=== PATIENT | male | born 1990 | race Caucasian/White ===

== ENCOUNTER 2016-10-31 09:01 | Emergency (ER) ==
[2016-10-31 09:12] VITALS: BP 112/77; TEMP 98.5; BMI 23.7
[2016-10-31] MEDS ORDERED: TETRACAINE 0.5% UNIT-DOSE OP ONE (09:18)
[2016-10-31] MEDS ORDERED: FLUORETS OP ONE (09:18)
[2016-10-31] MEDS ORDERED: EYE-STREAM OP ONE (09:18)
[2016-10-31] MEDS ORDERED: EYE-STREAM OP STA (09:26)
[2016-10-31] MEDS ORDERED: FLUORETS OP STA (09:27)
--- NOTE | 2016-10-31 09:30 | ED.PDOC ---
General ED Provider: Dr. RUY MEZA Chief Complaint: Eye Problem Stated Complaint: left eye pain Time Seen by Physician: 09:05 (dog sctrached left eye seen with tres at all times ) Mode of Arrival: Walk-In Information Source: Patient Exam Limitations: No limitations Nursing and Triage Documentation Reviewed and Agree: Yes (no metal on metal activity) EENT Complaint Exam - Eye Complaint/Exam Onset/Duration: 1 day Symptoms Are: Still present Timing: Constant Initial Severity: Moderate Current Severity: Moderate Location: Left Character: Reports: Throbbing, Foreign body sensation Aggravating: Reports: Light Alleviating: Reports: Darkness Associated Signs and Symptoms: Reports: Photophobia. Denies: Clear drainage, Purulent drainage, Vision impairment, Fever, Swelling Eye Surgical History: Reports: None Penetrating Injury Risk Factors: None Globe Rupture Risk Factors: None Acute Glaucoma Risk Factors: None Optic Artery Occlusion Risk Factors: None Visual Acuity Right Eye: 20/15 Visual Field: Normal Extraocular Movement: Normal Orbit Findings: Normal Globe Findings: Intact Lid Findings: Normal Conjunctival Findings: Red (left) Corneal Findings: Clear Fluorescein Uptake: Yes (3 oclock only) Differential Diagnoses: Corneal Abrasion Review of Systems - Review Of Systems Constitutional: Reports: No symptoms Eyes: Reports: No symptoms Ears, Nose, Mouth, Throat: Reports: Ear pain Respiratory: Reports: No symptoms Cardiac: Reports: No symptoms GI: Reports: No symptoms : Reports: No symptoms Musculoskeletal: Reports: No symptoms Skin: Reports: No symptoms Neurological: Reports: No symptoms Endocrine: Reports: No symptoms Hematologic/Lymphatic: Reports: No symptoms All Other Systems: Reviewed and Negative Past Medical History - Past Medical History Previously Healthy: Yes Endocrine: Reports: None Cardiovascular: Reports: None Respiratory: Reports: None Hematological: Reports: None Gastrointestinal: Reports: None Genitourinary: Reports: None Neuro/Psych: Reports: None Musculoskeletal: Reports: None Cancer: Reports: None - Surgical History General Surgical History: Reports: None - Family History Family History: Reports: Unknown - Social History Smoking Status: Current every day smoker Hx Substance Use: No Alcohol Screening: Occasionally Physical Exam - Physical Exam Appearance: Well-appearing, No pain distress, Well-nourished Eyes: Conjunctiva inflammed (left postive corneal abrasion no f/b ) ENT: Ears normal, Nose normal, Oropharynx normal Respiratory: Airway patent, Breath sounds clear, Breath sounds equal, Respirations nonlabored Cardiovascular: RRR, Pulses normal, No rub, No murmur GI/: Soft, Nontender, No masses, Bowel sounds normal, No Organomegaly Musculoskeletal: Normal strength, ROM intact, No edema, No calf tenderness Skin: Warm, Dry, Normal color Neurological: Sensation intact, Motor intact, Reflexes intact, Cranial nerves intact, Alert, Oriented Psychiatric: Affect appropriate, Mood appropriate Critical Care Note - Critical Care Note Total Time (mins): 0 Course - Course Orders, Labs, Meds: Orders Category Date Time Status Balanced Salt Solution [Eye-Stream] MEDS 10/31/16 09:18 Discontinued 1 bottle OP .STK-MED ONE Balanced Salt Solution [Eye-Stream] MEDS 10/31/16 09:26 Stat 1 bottle OP ONCE STA Fluorescein Sodium [Fluorets] MEDS 10/31/16 09:18 Discontinued 1 strip OP .STK-MED ONE Fluorescein Sodium [Fluorets] MEDS 10/31/16 09:27 Stat 1 strip OP ONCE STA Tetracaine HCl/Pf [Tetracaine 0.5% Unit-Dose] MEDS 10/31/16 09:18 Discontinued 1 drop OP .STK-MED ONE Medications Discontinued Medications Generic Name Dose Route Start Last Admin Trade Name Freq PRN Reason Stop Dose Admin Eye Irrigation Solution 1 bottle 10/31/16 09:26 Eye-Stream OP 10/31/16 09:27 ONCE STA Fluorescein Sodium 1 strip 10/31/16 09:27 Fluorets OP 10/31/16 09:28 ONCE STA Vital Signs: Temp Pulse Resp BP Pulse Ox 10/31/16 09:08 98.5 F 81 20 112/77 98 Departure - Departure Time of Disposition: 09:31 Disposition: HOME SELF-CARE Discharge Problem: Corneal abrasion Qualifiers: Encounter type: initial encounter Laterality: left Qualifier Code: (S05.02XA) Injury of conjunctiva and corneal abrasion without foreign body, left eye, initial encounter Instructions: Corneal Abrasion (ED) Condition: Good Pt referred to PMD for follow-up: No Additional Instructions: Please call your Family Physician as soon as possible to schedule a follow-up appointment. Allergies/Adverse Reactions: Allergies codeine Adverse Reaction (Verified 10/31/16 09:10) Home Medications: Ambulatory Orders 1 [No Reported Medications] 10/31/16
== END 2016-10-31 09:40 | disposition home or self-care (01) ==
LOC: ED 09:01
DX: S05.02XA Injury of conjunctiva and corneal abrasion without foreign body, left eye, initial encounter (principal); F17.210 Nicotine dependence, cigarettes, uncomplicated
CPT/HCPCS: 99283

== ENCOUNTER 2018-01-07 11:55 | Emergency (ER) ==
[2018-01-07 11:59] VITALS: BP 160/99; TEMP 98.8; BMI 26.5
--- NOTE | 2018-01-07 12:01 | ED.PDOC ---
General ED Provider: Dr. RUY MEZA Chief Complaint: Tooth Problem Stated Complaint: DENTAL PAIN Time Seen by Physician: 11:59 (SEEN WITH JUDY) Mode of Arrival: Walk-In Information Source: Patient Exam Limitations: No limitations Nursing and Triage Documentation Reviewed and Agree: Yes Reviewed sepsis parameters & appropriate labs ordered?: No System Inflammatory Response Syndrome: Not Applicable Sepsis Protocol: For patient's 13 years and over: Temp is 96.8 and below OR 101 and greater Pulse >90 BPM Resp >20/minute Acutely Altered Mental Status Are patient's symptoms suggestive of a new infection, such as: -Pneumonia -Skin, Soft Tissue -Endocarditis -UTI -Bone, Joint Infection -Implantable Device -Acute Abdominal Infection -Wound Infection -Meningitis -Blood Stream Catheter Infection -Unknown System Inflammatory Response Syndrome: Not Applicable EENT Complaint Exam - Dental/Oral Complaint/Exam Mechanism of Injury: No known trauma Onset/Duration: 2 DAYS Symptoms Are: Still present Timing: Constant Initial Severity: Severe Current Severity: Severe Character: Reports: Throbbing Aggravating: Reports: None, Heat, Cold Alleviating: Reports: None. Denies: OTC Meds Associated Signs and Symptoms: Denies: Swelling, Discharge, Fever, Foul odor, Foul taste in mouth Related History: Reports: Similar episode Cardiac Risk Factors: Reports: None Dental/Oral Surgical History: Reports: None Tooth Findings: Present: Percussion tenderness, Gross decay, Gross caries, Dental fracture Cervical Lymphadenopathy Present: No Facial Swelling Present: No Bleeding Present: No Oropharynx Findings: Absent: Clots, Active bleeding Septal Hematoma: No Foreign Body Present: No Dysphagia Present: No Drooling Present: No Asymmetrical Tonsillar Swelling Present: No Uvula Midline: Yes Emily-tonsillar Fluctuence: No Trismus Present: No Palatal Petechiae Present: No Scarlatinaform Rash Present: No Teeth Picture: 1 - BROKEN /ADVANCE DECAY Differential Diagnoses: Dental Caries, Fractured Tooth Review of Systems - Review Of Systems Constitutional: Reports: No symptoms Eyes: Reports: No symptoms Ears, Nose, Mouth, Throat: Reports: Mouth pain Respiratory: Reports: No symptoms Cardiac: Reports: No symptoms GI: Reports: No symptoms : Reports: No symptoms Musculoskeletal: Reports: No symptoms Skin: Reports: No symptoms Neurological: Reports: No symptoms Endocrine: Reports: No symptoms Hematologic/Lymphatic: Reports: No symptoms All Other Systems: Reviewed and Negative Past Medical History - Past Medical History Previously Healthy: Yes Endocrine: Reports: None Cardiovascular: Reports: None Respiratory: Reports: None Hematological: Reports: None Gastrointestinal: Reports: None Genitourinary: Reports: None Neuro/Psych: Reports: None Musculoskeletal: Reports: None Cancer: Reports: None - Surgical History General Surgical History: Reports: None - Family History Family History: Reports: Unknown - Social History Smoking Status: Current every day smoker Hx Substance Use: No Alcohol Screening: Occasionally Physical Exam - Physical Exam Appearance: Well-appearing, No pain distress, Well-nourished Eyes: CHRISTIAN, EOMI, Conjunctiva clear ENT: Ears normal, Nose normal, Oropharynx normal Respiratory: Airway patent, Breath sounds clear, Breath sounds equal, Respirations nonlabored Cardiovascular: RRR, Pulses normal, No rub, No murmur GI/: Soft, Nontender, No masses, Bowel sounds normal, No Organomegaly Musculoskeletal: Normal strength, ROM intact, No edema, No calf tenderness Skin: Warm, Dry, Normal color Neurological: Sensation intact, Motor intact, Reflexes intact, Cranial nerves intact, Alert, Oriented Psychiatric: Affect appropriate, Mood appropriate Critical Care Note - Critical Care Note Total Time (mins): 0 Course - Course Vital Signs: Temp Pulse Resp BP Pulse Ox 01/07/18 11:56 98.8 F 78 16 160/99 H 97 Departure - Departure Time of Disposition: 12:01 Disposition: HOME SELF-CARE Discharge Problem: Toothache Instructions: Toothache (ED) Condition: Good Pt referred to PMD for follow-up: Yes IPMP verified?: No Additional Instructions: Please call your Family Physician as soon as possible to schedule a follow-up appointment. Allergies/Adverse Reactions: Allergies codeine Adverse Reaction (Verified 01/07/18 11:58) Home Medications: Ambulatory Orders 1 [No Reported Medications] 10/31/16
== END 2018-01-07 12:05 | disposition home or self-care (01) ==
LOC: ED 11:55
DX: K08.89 Other specified disorders of teeth and supporting structures (principal); K02.7 Dental root caries; S02.5XXA Fracture of tooth (traumatic), initial encounter for closed fracture; F17.210 Nicotine dependence, cigarettes, uncomplicated
CPT/HCPCS: 99282

== ENCOUNTER 2018-01-21 12:59 | Emergency (ER) ==
[2018-01-21 13:03] VITALS: BP 151/75; TEMP 98.4; BMI 25.4
--- NOTE | 2018-01-21 13:36 | ED.PDOC ---
General ED Provider: Dr. FORTUNATO DUMONT Chief Complaint: Tooth Problem Stated Complaint: recently seen two week as ago for the same tooth ache. Has not seen dentist yet. Apt is set for next week has been taking Motrin without improvement. Time Seen by Physician: 13:00 Mode of Arrival: Walk-In Information Source: Patient Nursing and Triage Documentation Reviewed and Agree: Yes Reviewed sepsis parameters & appropriate labs ordered?: No System Inflammatory Response Syndrome: Not Applicable Sepsis Protocol: For patient's 13 years and over: Temp is 96.8 and below OR 101 and greater Pulse >90 BPM Resp >20/minute Acutely Altered Mental Status Are patient's symptoms suggestive of a new infection, such as: -Pneumonia -Skin, Soft Tissue -Endocarditis -UTI -Bone, Joint Infection -Implantable Device -Acute Abdominal Infection -Wound Infection -Meningitis -Blood Stream Catheter Infection -Unknown System Inflammatory Response Syndrome: Not Applicable EENT Complaint Exam - Dental/Oral Complaint/Exam Mechanism of Injury: No known trauma Onset/Duration: 3 weeks Symptoms Are: Still present Timing: Constant Initial Severity: Moderate Current Severity: Severe Location: left upper teeth Character: Reports: Aching, Throbbing Aggravating: Reports: Heat, Cold, Chewing Alleviating: Reports: None Associated Signs and Symptoms: Reports: Swelling, Foul odor, Foul taste in mouth Related History: Reports: Similar episode Cardiac Risk Factors: Reports: None Dental/Oral Surgical History: Reports: None Tooth Findings: Present: Gross decay, Gross caries, Abcess Cervical Lymphadenopathy Present: No Facial Swelling Present: No Septal Hematoma: No Foreign Body Present: No Dysphagia Present: No Drooling Present: No Asymmetrical Tonsillar Swelling Present: No Uvula Midline: No Emily-tonsillar Fluctuence: No Trismus Present: No Palatal Petechiae Present: No Scarlatinaform Rash Present: No Teeth Picture: 1 - gross decay Differential Diagnoses: Dental Abcess, Dental Caries Review of Systems - Review Of Systems Constitutional: Reports: No symptoms Eyes: Reports: No symptoms Ears, Nose, Mouth, Throat: Reports: Mouth pain, Loose teeth Respiratory: Reports: No symptoms Cardiac: Reports: No symptoms GI: Reports: No symptoms : Reports: No symptoms Musculoskeletal: Reports: No symptoms Skin: Reports: No symptoms Neurological: Reports: No symptoms Endocrine: Reports: No symptoms Hematologic/Lymphatic: Reports: No symptoms All Other Systems: Reviewed and Negative Past Medical History - Past Medical History Previously Healthy: Yes Endocrine: Reports: None Cardiovascular: Reports: None Respiratory: Reports: None Hematological: Reports: None Gastrointestinal: Reports: None Genitourinary: Reports: None Neuro/Psych: Reports: None Musculoskeletal: Reports: None Cancer: Reports: None - Surgical History General Surgical History: Reports: None - Family History Family History: Reports: Unknown - Social History Smoking Status: Current every day smoker, Heavy tobacco smoker Hx Substance Use: No Alcohol Screening: None Physical Exam - Physical Exam Appearance: Ill-appearing Ill-appearing: Moderate Pain Distress: Severe Eyes: CHRISTIAN, EOMI, Conjunctiva clear ENT: Ears normal, Nose normal, Oropharynx normal Respiratory: Airway patent, Breath sounds clear, Breath sounds equal, Respirations nonlabored Cardiovascular: RRR, Pulses normal, No rub, No murmur Skin: Warm, Dry, Normal color Neurological: Sensation intact, Motor intact, Alert, Oriented Psychiatric: Affect appropriate, Mood appropriate Critical Care Note - Critical Care Note Total Time (mins): 0 Course - Course Vital Signs: Temp Pulse Resp BP Pulse Ox 01/21/18 12:59 98.4 F 78 16 151/75 H 97 Departure - Departure Time of Disposition: 13:53 Disposition: HOME SELF-CARE Discharge Problem: Dental abscess Instructions: Dental Abscess (ED) Condition: Fair Pt referred to PMD for follow-up: Yes IPMP verified?: No Additional Instructions: Take medications as needed for severe pain only Follow up with dentist. Prescriptions: Tramadol HCl [Ultram] 50 mg PO Q6-8H PRN #20 tablet PRN Reason: Severe Pain Allergies/Adverse Reactions: Allergies codeine Adverse Reaction (Verified 01/21/18 13:04) Home Medications: Ambulatory Orders Tramadol HCl [Ultram] 50 mg PO Q6-8H PRN #20 tablet 01/21/18 Disposition Discussed With: Patient, Family
== END 2018-01-21 14:04 | disposition home or self-care (01) ==
LOC: ED 12:59
DX: K04.7 Periapical abscess without sinus (principal); K02.7 Dental root caries; F17.210 Nicotine dependence, cigarettes, uncomplicated
CPT/HCPCS: 99282

== ENCOUNTER 2018-04-25 15:58 | Emergency (ER) ==
[2018-04-25 16:08] VITALS: TEMP 98.4; BMI 24.1
--- NOTE | 2018-04-25 16:15 | ED.PDOC ---
General ED Provider: Dr. DAVE MONROE Chief Complaint: Tooth Problem Stated Complaint: UPPER GUM PAIN LT SIDE MOUTH. POST UPPER EXTRACTIONS BY DR AGUILAR. HAS APPOINTMENT THIS TUESDAY. HAS BEEN ON ANTIBIOTICS AND IBUPROFEN; HAS FINISHED AMOXICILLIN LAST WEEK. NOT GETTING PAIN RELIEF Time Seen by Physician: 16:10 Mode of Arrival: Walk-In Information Source: Patient Exam Limitations: No limitations Nursing and Triage Documentation Reviewed and Agree: Yes Does patient meet sepsis criteria?: No System Inflammatory Response Syndrome: Not Applicable Sepsis Protocol: For patient's 13 years and over: Temp is 96.8 and below OR 101 and greater Pulse >90 BPM Resp >20/minute Acutely Altered Mental Status Are patient's symptoms suggestive of a new infection, such as: -Pneumonia -Skin, Soft Tissue -Endocarditis -UTI -Bone, Joint Infection -Implantable Device -Acute Abdominal Infection -Wound Infection -Meningitis -Blood Stream Catheter Infection -Unknown EENT Complaint Exam - Dental/Oral Complaint/Exam Mechanism of Injury: No known trauma Onset/Duration: LAST WEEK Symptoms Are: Still present Timing: Constant Initial Severity: Moderate Current Severity: Severe Location: UPPER MID TO LT LATERAL GUM LINE Character: Reports: Aching, Throbbing Aggravating: Reports: Cold, Exertion Alleviating: Reports: None Associated Signs and Symptoms: Reports: Swelling Related History: Reports: Previous tooth problem. Denies: Similar episode, Valvular heart disease, TMJ disfunction Cardiac Risk Factors: Reports: None Dental/Oral Surgical History: Reports: Periodontal Surgery Tooth Findings: Present: Gross decay (LOWER TEETH), Gross caries (LOWER TEETH), Cellulitis (UPPER GUM AND GINGIVAL REGIONS) Facial Swelling Present: Yes Bleeding Present: No Septal Hematoma: No Foreign Body Present: No Dysphagia Present: No Drooling Present: No Asymmetrical Tonsillar Swelling Present: No Uvula Midline: No Emily-tonsillar Fluctuence: No Trismus Present: No Palatal Petechiae Present: No Scarlatinaform Rash Present: No Lesions: Absent: Lip, Gums, Tongue, Buccal Mucosa, Pharynx Exanthem: Absent: Lip, Gums, Tongue, Buccal Mucosa, Pharynx Vesicles: Absent: Lip, Gums, Tongue, Buccal Mucosa, Pharynx Differential Diagnoses: Dental Abcess, Dental Caries, Gingivitis Review of Systems - Review Of Systems Constitutional: Reports: Loss of appetite Eyes: Reports: No symptoms Ears, Nose, Mouth, Throat: Reports: Mouth pain (sensation retained tooth fragment in area of pain upper gum), Mouth swelling Respiratory: Reports: No symptoms Cardiac: Reports: No symptoms GI: Reports: No symptoms : Reports: No symptoms Musculoskeletal: Reports: No symptoms Skin: Reports: No symptoms Neurological: Reports: No symptoms Endocrine: Reports: No symptoms All Other Systems: Reviewed and Negative Past Medical History - Past Medical History Previously Healthy: Yes Endocrine: Reports: None Cardiovascular: Reports: None Respiratory: Reports: None Hematological: Reports: None Gastrointestinal: Reports: None Genitourinary: Reports: None Neuro/Psych: Reports: None Musculoskeletal: Reports: None Cancer: Reports: None - Surgical History General Surgical History: Reports: None - Family History Family History: Reports: Unknown - Social History Smoking Status: Current every day smoker, Heavy tobacco smoker Hx Substance Use: No Alcohol Screening: None Physical Exam - Physical Exam Appearance: Well-appearing, Ill-appearing (appears to be in pain ), Well- nourished, Thin Ill-appearing: Mild Pain Distress: Moderate Eyes: CHRISTIAN, EOMI, Conjunctiva clear ENT: Ears normal, Nose normal, Oropharynx normal, Erythema (upper gingival region frontal-incisor to region of canine) Neck: Supple Respiratory: Airway patent, Breath sounds clear, Breath sounds equal, Respirations nonlabored Cardiovascular: RRR, Pulses normal, No rub, No murmur GI/: Soft, Nontender, No masses, Bowel sounds normal, No Organomegaly Musculoskeletal: Normal strength, ROM intact, No edema, No calf tenderness Skin: Warm, Dry, Normal color Neurological: Sensation intact, Motor intact, Reflexes intact, Cranial nerves intact, Alert, Oriented Psychiatric: Affect appropriate, Mood appropriate Critical Care Note - Critical Care Note Total Time (mins): 0 Course - Course Vital Signs: Temp Pulse Resp BP Pulse Ox 04/25/18 15:59 98.4 F 79 20 185/103 H 97 Departure - Departure Time of Disposition: 17:20 Disposition: HOME SELF-CARE Discharge Problem: Dental abscess, Pain, dental Instructions: Toothache (ED), Dental Abscess (ED) Condition: Fair Pt referred to PMD for follow-up: Yes (Dr AGUILAR) IPMP verified?: No Additional Instructions: Take Clindamycin for antibiotic therapy May take Argillite for pain unrelieved by ibuprofen/hydroxyzine Rinse mouth with warm salt water Prescriptions: Clindamycin HCl 300 mg PO QID #28 capsule Allergies/Adverse Reactions: Allergies codeine Adverse Reaction (Verified 04/25/18 16:04) Home Medications: Ambulatory Orders Clindamycin HCl 150 mg PO QID #28 capsule 04/25/18 Clindamycin HCl 300 mg PO QID #28 capsule 04/25/18 Hydrocodone Bit/Acetaminophen [Argillite 7.5-325] 1 each PO Q6HR #10 tablet Hydroxyzine HCl 25 mg PO Q6-8H PRN #20 tablet 04/25/18
--- NOTE | 2018-04-25 16:49 | CT ---
EXAM: CT of the maxillofacial region without contrast History: Pain and swelling of the gumline Technique: Multiplanar CT images through the maxillofacial region were obtained without the administ ration of IV contrast Findings: Orbits are intact. Visualized intracranial contents demonstrate no grossly acute findings . Surrounding soft tissues demonstrate no acute abnormality. Evaluation for abscess is limited due to the lack of IV contrast but no drainable fluid collections are identified. Multiple missing teeth , multiple dental caries and multiple periapical dental lucencies. No acute fracture or dislocation. Mild mucosal thickening of the ethmoid air cells. Mild mucosal thickening of the maxillary sinuses and sphenoid sinuses as well as the frontal sinuses. No air-fluid levels seen within the sinuses. N sav septum is bowed to the right. Bilateral ostiomeatal units are not occluded. Impression: 1. No acute osseous abnormality. 2. Mild paranasal sinus disease. 3. Multiple missing teeth, multiple dental caries and multiple periapical dental lucencies/abscesses .
[2018-04-25 17:07] VITALS: BP 162/91
== END 2018-04-25 17:25 | disposition home or self-care (01) ==
LOC: ED 15:58
DX: K04.7 Periapical abscess without sinus (principal)
CPT/HCPCS: 99282